=== PATIENT | female | born 1980 | race Caucasian/White ===

== ENCOUNTER → 2018-10-23 | Outpatient (CLI) | payer OTHER ==
--- NOTE | ~2018-10-23 | EXE ---
[facility] [employer] [place] [address] STRESS ECHOCARDIOGRAM Name: RENEE TELLO SHANIA Room #: REG [facility]#: [id number] Admission: 10/23/18 Attend Phys: Braydon Johns MD Discharge: Date of : 84 Date of Service: 10/23/18 1234 Report #: [id number] THIS REPORT FOR: //name// APPROVED REPORT Study performed: 10/23/2018 10:36:57 Exam: Stress Echocardiogram Indication: Chest pain , SVT Patient Location: Out-Patient Stress Nurse: Cathy Garrison RN Room #: Echo lab 2 Status: routine Ht: 5 ft 7 in HR: 78 bpm BP: 112/82 mmHg Rhythm: NSR Medical History Medical History: SVT Exercise History: Indeterminate Procedure The patient underwent an Exercise Stress Test using the Douglas Protocol. Blood pressure, heart rate, and EKG were monitored. An Echocardiogram was performed by pattern technician in four stages in quad fashion. At peak stress, four selected images were obtained and placed side by side with resting images for comparison. Stress Test Details Stress Test: Exercise stress testing was performed using a Douglas protocol. HR Resting HR: 78 bpm Max Heart Rate (APMHR): 184 bpm Max HR Achieved: 169 bpm Target HR (85% APMHR): 156 bpm % of APMHR: 91 Recovery HR: 106 bpm HR response to stress: Normal HR response to stress BP Resting BP: 112/82 mmHg Max BP: 166/74 mmHg Recovery BP: 120/82 mmHg BP response to stress: Normal blood pressure response to stress. [facility] [address] [place] [address] STRESS ECHOCARDIOGRAM Name: RENEE TELLO Room #: REG CL [facility]#: [id number] Admission: 10/23/18 Attend Phys: Braydon Johns MD Discharge: Date of : 84 Date of Service: 10/23/18 1234 Report #: [id number] ECG Resting ECG: Sinus Rhythm Stress ECG: Sinus Rhythm ST Change: Non-ischemic Clinical Reason for Termination: Maximal effort Exercise duration: 8 min 59 sec Highest Stage Achieved: Stage 3: 3.4 mph at 14% grade. Exercise capacity: 10.4 METs Overall Exercise Capacity for Age: Normal Pre-Stress Echo The resting Echocardiogram showed normal left ventricular contractility with an estimated Ejection Fraction of about >55%. Normal wall motion in all segments on baseline images. Post-Stress Echo The stress Echocardiogram showed normal left ventricular contractility with an estimated Ejection Fraction of about 65-70%. Normal augmentation of wall motion in all segments on post stress images. Clinical Normal augmentation of myocardial wall segments using a 17 segment model. No clinical or ECG evidence for ischemia. Conclusion Clinical Response: Non-ischemic Exercise Capacity: Average Stress ECG Response: Non-ischemic Stress Echo Images: Non-ischemic The left ventricle is normal in size and wall thickness in both the rest and stress images. Other Information Study Quality: Adequate <Conclusion> The left ventricle is normal in size and wall thickness in both the rest and stress images. <ELECTRONICALLY SIGNED> By: Braydon Johns MD 10/23/18 1234 1234 1234 Braydon Johns MD /INF
--- NOTE | ~2018-10-23 | 2DMMODE ---
[facility] [address] [place] [address] 2 D/M-MODE ECHOCARDIOGRAM Name: TELLORENEE Room #: REG [facility]#: [id number] Admission: 10/23/18 Attend Phys: Braydon Johns MD Discharge: Date of : 84 Date of Service: 10/23/18 1227 Report #: [id number] THIS REPORT FOR: //name// APPROVED REPORT Study performed: 10/23/2018 10:15:27 EXAM: Comprehensive 2D, Doppler, and color-flow Echocardiogram Patient Location: Out-Patient Room #: Echolab 2 Status: routine BSA: 1.98 HR: 78 bpm BP: 112/82 mmHg Rhythm: NSR Other Information Study Quality: Good Indications Chest Pain SVT 2D Dimensions RVDd: 33.87 mm IVSd: 8.56 (7-11mm) LVOT Diam: 22.81 (18-24mm) LVDd: 44.25 mm PWd: 9.09 (7-11mm) Ascending Ao: 29.87 (22-36mm) LVDs: 29.08 (25-40mm) Aortic Root: 29.51 mm IVC: 18.00 mm Volumes Left Atrial Volume (Systole) Single Plane 4CH: 32.16 mL Single Plane 2CH: 31.02 mL LA ESV Index: 17.00 mL/m2 Aortic Valve AoV Peak Jam.: 1.38 m/s AO Peak Gr.: 7.58 mmHg LVOT Max P.78 mmHg LVOT Max V: 0.97 m/s MARY Vmax: 2.89 cm2 Mitral Valve E/A Ratio: 1.7 MV Decel. Time: 247.63 ms [facility] [address] [place] [address] 2 D/M-MODE ECHOCARDIOGRAM Name: RENEE TELLO Room #: REG [facility]#: [id number] Admission: 10/23/18 Attend Phys: Braydon Johns MD Discharge: Date of : 84 Date of Service: 10/23/18 1227 Report #: [id number] MV E Max Jam.: 1.16 m/s MV A Jam.: 0.68 m/s MV PHT: 71.81 ms IVRT: 69.20 ms Pulmonary Valve PV Peak Jam.: 0.87 m/s PV Peak Gr.: 3.02 mmHg Pulmonary Vein P Vein S: 0.42 m/s P Vein A: 0.24 m/s P Vein D: 0.53 m/s P Vein A Dur.: 110.7 msec P Vein S/D Ratio: 0.79 Tricuspid Valve TR Peak Jam.: 1.80 m/s TR Peak Gr.: 12.95 mmHg PA Pressure: 18.00 mmHg Left Ventricle The left ventricle is normal size. There is normal LV segmental wall motion. There is normal left ventricular wall thickness. Left ventricular systolic function is normal. The left ventricular ejection fraction is within the normal range. LVEF is 55-60%. The left ventricular diastolic function is normal. Right Ventricle The right ventricle is normal size. The right ventricular systolic function is normal. Atria The left atrium size is normal. The right atrium size is normal. Aortic Valve The aortic valve is normal in structure. No aortic regurgitation is present. There is no aortic valvular stenosis. Mitral Valve The mitral valve is normal in structure. Trace mitral regurgitation. No evidence of mitral valve stenosis. Tricuspid Valve The tricuspid valve is normal in structure. There is trace tricuspid regurgitation. Estimated PAP 18 mmHg. There is no pulmonary hypertension. [place] [id number] 2 D/M-MODE ECHOCARDIOGRAM Name: RENEE TELLO SHANIA Room #: REG [facility]#: [id number] Admission: 10/23/18 Attend Phys: Braydon Johns MD Discharge: Date of : 84 Date of Service: 10/23/18 1227 Report #: [id number] Pulmonic Valve The pulmonary valve is normal in structure. There is no pulmonic valvular regurgitation. Great Vessels The aortic root is normal in size. IVC is normal in size and collapses >50% with inspiration. Pericardium There is no pericardial effusion. <Conclusion> The left ventricle is normal size. There is normal left ventricular wall thickness. Left ventricular systolic function is normal. The left ventricular diastolic function is normal. The right ventricle is normal size. The left atrium size is normal. The aortic valve is normal in structure. Trace mitral regurgitation. There is trace tricuspid regurgitation. Estimated PAP 18 mmHg. <ELECTRONICALLY SIGNED> By: Braydon Johns MD 10/23/18 1227 122 [id number] Braydon Johns MD /INF
== END ==
LOC: CV 09:28
DX: I47.1 Supraventricular tachycardia (principal); I20.8 Other forms of angina pectoris; R07.2 Precordial pain; R00.2 Palpitations; R55 Syncope and collapse